=== PATIENT | female | born 1990 | race African-American/Black ===

== ENCOUNTER → 2017-04-04 | Outpatient (CLI) | payer OTHER ==
[2017-04-04 02:52] LABS: ADD MAN DIFF? NO
[2017-04-04 02:58] LABS: BASO % 1 % (0-3); EOS % 1 % (0-3); HEMOGLOBIN 11.1 g/dL (12.0-15.5); LYMPH # 2.1 x10^3/uL (1.0-4.8); LYMPH % 44 % (24-48); MEAN CORPUSCULAR HEMOGLOBIN 24 pg (25-35); MEAN CORPUSCULAR HGB CONC 32 g/dL (31-37); MEAN CORPUSCULAR VOLUME 76 fL (79-100); MONO # 0.4 x10^3/uL (0.0-1.1); MONO % 8 % (0-9); NEUT # 2.2 x10^3uL (1.8-7.7); NEUT % 46 % (31-73); PLATELET COUNT 281 x10^3/uL (140-400); RED CELL DISTRIBUTION WIDTH 12.9 % (11.5-14.5); WHITE BLOOD COUNT 4.8 x10^3/uL (4.0-11.0)
[2017-04-04 03:08] LABS: BILIRUBIN,URINE SMALL (NEG); CLARITY,URINE CLEAR; COLOR,URINE YELLOW; GLUCOSE,URINE NEGATIVE (NEG); NITRITE,URINE NEGATIVE (NEG); PROTEIN,URINE NEGATIVE (NEG-TRACE)
[2017-04-04 03:13] LABS: % SAT IRON 9 % (15-34); IRON,SERUM 31 ug/dL (50-170)
[2017-04-04 03:14] LABS: ALBUMIN 4.2 g/dL (3.4-5.0); ALBUMIN/GLOBULIN RATIO 1.1 (1.0-1.7); ALK PHOS 60 U/L (46-116); ALT (SGPT) 13 U/L (14-59); ANION GAP 9 (6-14); AST (SGOT) 12 U/L (15-37); BLOOD UREA NITROGEN 11 mg/dL (7-20); BUN/CREATININE RATIO 12 (6-20); C-REACTIVE PROTEIN 0.7 mg/L (0-3.3); CALCIUM 8.3 mg/dL (8.5-10.1); CARBON DIOXIDE 25 mmol/L (21-32); CHLORIDE 103 mmol/L (98-107); CREATININE 0.9 mg/dL (0.6-1.0); GFR 76.3; GLUCOSE 100 mg/dL (70-99); POTASSIUM 3.4 mmol/L (3.5-5.1); SODIUM 137 mmol/L (136-145); TOTAL BILIRUBIN 0.5 mg/dL (0.2-1.0)
[2017-04-04 03:24] LABS: FREE T4 1.12 ng/dL (0.76-1.46)
[2017-04-04 03:24] LABS: BACTERIA,URINE 0 /HPF (0-FEW); RBC,URINE 0 /HPF (0-2); SQUAMOUS EPITHELIAL CELL,UR FEW /LPF; THYROID STIM HORMONE (TSH) 2.985 uIU/mL (0.358-3.74); WBC,URINE 0 /HPF (0-4)
[2017-04-04 04:02] LABS: SEDIMENTATION RATE 5 (0-25)
[2017-04-04 04:04] LABS: FERRITIN 27 ng/mL (8-252)
[2017-04-04 08:46] LABS: FOLATE 8.89 ng/ml (3.2-20.0)
[2017-04-04 08:46] LABS: VITAMIN-B12 485 pg/mL (247-911)
[2017-04-04 12:24] LABS: HEMOGLOBIN A1C 4.5 % (4.8-5.6); T3 TOTAL 96 ng/dL (71-180); THYROPEROXIDASE ANTIBODY 89 IU/mL (0-34); THYROXINE 7.1 ug/dL (4.5-12.0)
[2017-04-08 10:16] LABS: THYROGLOBULIN ANTIBODY 1.6 IU/mL (0.0-0.9)
== END | disposition home or self-care (01) ==
LOC: LAB 02:38
DX: E04.9 Nontoxic goiter, unspecified (principal); E06.9 Thyroiditis, unspecified; I88.9 Nonspecific lymphadenitis, unspecified; D64.9 Anemia, unspecified; R61 Generalized hyperhidrosis
CPT/HCPCS: 36415; 80053; 81001; 82306; 82607; 82728; 82746; 83036; 83540; 83550; 84436; 84439; 84443; 84480; 84481; 85025; 85651; 86140; 86376; 86800

== ENCOUNTER → 2017-04-23 | Outpatient (CLI) | payer OTHER | END | disposition home or self-care (01) | LOC: KCIC US 10:57 | DX: E04.1 Nontoxic single thyroid nodule (principal); R59.0 Localized enlarged lymph nodes; R61 Generalized hyperhidrosis | CPT/HCPCS: 71046; 76536; 76882 ==

== ENCOUNTER 2017-05-04 19:13 | Emergency (ER) | payer OTHER | END 2017-05-04 19:33 | disposition home or self-care (01) | LOC: ER 19:13 | DX: H57.8 Other specified disorders of eye and adnexa (principal) | CPT/HCPCS: 99283 ==

== ENCOUNTER 2017-05-17 07:30 | Emergency (ER) | payer OTHER ==
[2017-05-17] MEDS ORDERED: 0.9 % SODIUM CHLORIDE 10 ML DISP.SYRIN. IV (07:45)
[2017-05-17 07:55] LABS: URINE HCG POC HCG NEGATIVE (Negative)
[2017-05-17 08:02] LABS: BILIRUBIN,URINE SMALL (NEG); CLARITY,URINE CLEAR; COLOR,URINE AMBER; GLUCOSE,URINE NEGATIVE (NEG); NITRITE,URINE NEGATIVE (NEG); PH,URINE 5.5; PROTEIN,URINE NEGATIVE (NEG-TRACE)
[2017-05-17 08:07] LABS: ADD MAN DIFF? NO
[2017-05-17 08:12] LABS: BASO # 0.1 x10^3/uL (0.0-0.2); BASO % 1 % (0-3); EOS # 0.1 x10^3/uL (0.0-0.7); EOS % 1 % (0-3); HEMATOCRIT 33.4 % (36.0-47.0); HEMOGLOBIN 10.5 g/dL (12.0-15.5); LYMPH % 33 % (24-48); MEAN CORPUSCULAR HEMOGLOBIN 24 pg (25-35); MEAN CORPUSCULAR HGB CONC 31 g/dL (31-37); MEAN CORPUSCULAR VOLUME 76 fL (79-100); MONO # 0.6 x10^3/uL (0.0-1.1); MONO % 10 % (0-9); NEUT # 3.4 x10^3uL (1.8-7.7); NEUT % 55 % (31-73); PLATELET COUNT 288 x10^3/uL (140-400); RED BLOOD COUNT 4.42 x10^6/uL (3.50-5.40); RED CELL DISTRIBUTION WIDTH 12.7 % (11.5-14.5); WHITE BLOOD COUNT 6.1 x10^3/uL (4.0-11.0)
[2017-05-17] MEDS: LIDO:MAALOX:DONNATAL 1:1:1 15 ML SINGLE DOSE SWSW (08:12)
[2017-05-17 08:13] LABS: BACTERIA,URINE 0 /HPF (0-FEW); WBC,URINE 0 /HPF (0-4)
[2017-05-17] MEDS: KETOROLAC 30 MG/ML INJ. IV (08:13)
[2017-05-17] MEDS: IV NORMAL SALINE 1000ML BAG 1,000 ML IV (08:13)
[2017-05-17] MEDS: ONDANSETRON PF 4 MG/2 ML VIAL. IV (08:13)
[2017-05-17 08:18] LABS: ANION GAP 6 (6-14); BLOOD UREA NITROGEN 7 mg/dL (7-20); CALCIUM 8.9 mg/dL (8.5-10.1); CARBON DIOXIDE 27 mmol/L (21-32); CHLORIDE 105 mmol/L (98-107); CREATININE 0.9 mg/dL (0.6-1.0); GFR 92.3; GLUCOSE 103 mg/dL (70-99); POTASSIUM 3.4 mmol/L (3.5-5.1); SODIUM 138 mmol/L (136-145)
[2017-05-17 08:24] LABS: ALBUMIN 3.7 g/dL (3.4-5.0); ALK PHOS 62 U/L (46-116); ALT (SGPT) 15 U/L (14-59); AST (SGOT) 15 U/L (15-37); DIRECT BILIRUBIN 0.1 mg/dL (0.0-0.2); LIPASE 117 U/L (73-393); TOTAL BILIRUBIN 0.4 mg/dL (0.2-1.0); TOTAL PROTEIN 7.2 g/dL (6.4-8.2)
[2017-05-17 08:29] LABS: TROPONINI < 0.017 ng/mL (0.000-0.055)
[2017-05-17 08:34] LABS: CKMB MASS < 0.5 ng/mL (0.0-3.6); CREATINE KINASE 138 U/L (26-192)
== END 2017-05-17 09:04 | disposition home or self-care (01) ==
LOC: ER 07:30
DX: R10.13 Epigastric pain (principal); R07.89 Other chest pain
CPT/HCPCS: 36415; 76705; 80048; 80076; 81001; 81025; 82553; 83690; 84484; 85025; 93005; 96361; 96374; 96375; 99285-25; J1885; J2405; J7030

== ENCOUNTER → 2017-10-31 | Outpatient (CLI) | payer OTHER ==
[2017-05-17 08:41] VITALS: BP 138/61
[~2017-10-31] MED LIST: ONDA4TAB10 PO; PANT20TA2 PO; PRED20TA PO
[2017-10-31 14:47] LABS: BASO % 1 % (0-3); EOS % 1 % (0-3); HEMATOCRIT 35.8 % (36.0-47.0); HEMOGLOBIN 11.4 g/dL (12.0-15.5); LYMPH # 1.6 x10^3/uL (1.0-4.8); LYMPH % 42 % (24-48); MEAN CORPUSCULAR HEMOGLOBIN 24 pg (25-35); MEAN CORPUSCULAR HGB CONC 32 g/dL (31-37); MEAN CORPUSCULAR VOLUME 76 fL (79-100); MONO # 0.4 x10^3/uL (0.0-1.1); MONO % 11 % (0-9); NEUT # 1.7 x10^3uL (1.8-7.7); NEUT % 45 % (31-73); PLATELET COUNT 296 x10^3/uL (140-400); RED BLOOD COUNT 4.69 x10^6/uL (3.50-5.40); RED CELL DISTRIBUTION WIDTH 13.1 % (11.5-14.5); WHITE BLOOD COUNT 3.8 x10^3/uL (4.0-11.0)
[2017-10-31 15:37] LABS: FREE T4 1.08 ng/dL (0.76-1.46)
[2017-10-31 15:40] LABS: ALBUMIN/GLOBULIN RATIO 1.1 (1.0-1.7); CALCIUM 8.4 mg/dL (8.5-10.1); CREATININE 0.9 mg/dL (0.6-1.0); GFR 92.3; POTASSIUM 3.7 mmol/L (3.5-5.1); TOTAL BILIRUBIN 0.5 mg/dL (0.2-1.0); TOTAL PROTEIN 7.7 g/dL (6.4-8.2)
[2017-10-31 22:15] LABS: FSH 3.5 mIU/mL (.); LUTEINIZING HORMONE 7.6 mIU/mL (.); PROGESTERONE 15.1 ng/mL (.); PROLACTIN 15.4 ng/mL (4.8-23.3); THYROXINE 7.5 ug/dL (4.5-12.0)
[2017-11-01 05:18] LABS: HEMOGLOBIN A1C 4.2 % (4.8-5.6)
== END | disposition home or self-care (01) ==
LOC: LAB 14:13
PROVIDERS: ATTEND Family Medicine
DX: D64.9 Anemia, unspecified (principal); E06.9 Thyroiditis, unspecified; N92.6 Irregular menstruation, unspecified
CPT/HCPCS: 36415; 80053; 82306; 82607; 82670; 82728; 82746; 83001; 83002; 83036; 83540; 84144; 84146; 84436; 84439; 84480; 84481; 85025; 86376

== ENCOUNTER 2018-07-28 12:12 | Emergency (ER) | payer OTHER ==
[~2018-07-28] VITALS: Ht 170.2 cm; Wt 68.0 kg
[2018-07-28 12:47] VITALS: BP 136/65
[2018-07-28 14:18] LABS: U PREG PATIENT NEGATIVE (NEG)
[2018-07-28] MEDS ORDERED: KETOROLAC 60 MG/2 ML VIAL. IM ONE (14:30)
[2018-07-28] MEDS ORDERED: CYCL5TAB PO (14:53)
--- NOTE | 2018-07-28 14:54 | PHYS DOC ---
Past Medical History Past Medical History: Anemia Additional Past Medical Histor: Lou's thyroiditis (ONESIMO WHITEHEADKEENAN [employer]) Past Surgical History: Other Additional Past Surgical Histo: UMBILICAL SX (JCARLOSPAWELBAKARICHARLEE Chow APRN) Alcohol Use: None Drug Use: None (COURT WHITEHEADCHARLEE Chow APRN) Adult General Chief Complaint Chief Complaint: BACK PAIN OR INJURY HPI HPI Patient is a 28 year old female who presents with pain in her lower back after she strained it lifting a patient at work. The patient states that she was working with a personal size and as they were rolling the patient to do wound care and cleaning the patient she wrenched her back. She states that she is having muscle spasms. She denies spontaneous loss of bowel or bladder, saddle numbness or foot drop. (BAKARI WHITEHEAD APRN) Review of Systems Review of Systems Constitutional: Denies fever or chills [] Eyes: Denies change in visual acuity, redness, or eye pain [] HENT: Denies nasal congestion or sore throat [] Respiratory: Denies cough or shortness of breath [] Cardiovascular: No additional information not addressed in HPI [] GI: Denies abdominal pain, nausea, vomiting, bloody stools or diarrhea [] : Denies dysuria or hematuria [] Musculoskeletal: See history of present illness Integument: Denies rash or skin lesions [] Neurologic: Denies headache, focal weakness or sensory changes [] Endocrine: Denies polyuria or polydipsia [] All other systems were reviewed and found to be within normal limits, except as documented in this note. (BAKARI WHITEHEAD APRN) Current Medications Current Medications Current Medications Medications (Trade) Dose Ordered Sig/[facility] Start Time Stop Time Status Last Admin Dose Admin Ketorolac Tromethamine (Toradol Im) 60 mg 1X ONCE 07/28/18 14:30 07/28/18 14:31 DC 07/28/18 14:55 60 MG (SANDEEP REYES MD) Allergies Allergies Allergies Coded Allergies Type Severity Reaction Last Updated Verified No Known Drug Allergies 05/04/17 No (SANDEEP REYES MD) Physical Exam Physical Exam Constitutional: Well developed, well nourished, no acute distress, non-toxic appearance. [] Cardiovascular:Heart rate regular rhythm, no murmur [] Lungs & Thorax: Bilateral breath sounds clear to auscultation [] Abdomen: Bowel sounds normal, soft, no tenderness, no masses, no pulsatile masses. [] Skin: Warm, dry, no erythema, no rash. [] Back: No point spinal tenderness, general lumbar tenderness, no CVA tenderness. [] Extremities: No tenderness, no cyanosis, no clubbing, ROM intact, no edema. [] Neurologic: Alert and oriented X 3, normal motor function, normal sensory function, no focal deficits noted. [] Psychologic: Affect normal, judgement normal, mood normal. [] (BAKARI WHITEHEAD APRN) Current Patient Data Vital Signs Vital Signs Date Time Temp Pulse Resp B/P (MAP) Pulse Ox O2 Delivery O2 Flow Rate FiO2 07/28/18 12:47 98.6 75 136/65 (88) 98 Room Air 98.6 (SANDEEP REYES MD) Lab Values Laboratory Tests Test 07/28/18 13:01 Urine Test Negative (NEG) (SANDEEP REYES MD) EKG EKG [] (BAKARI WHITEHEAD APRN) Radiology/Procedures Radiology/Procedures [] (BAKARI WHITEHEAD APRN) Course & Med Decision Making Course & Med Decision Making Pertinent Labs and Imaging studies reviewed. (See chart for details) []The patient received a shot of Toradol in the emergency department. (BAKARI WHITEHEAD APRN) Course & Med Decision Making Staff Physician Addendum: I was working in the ER during the course of this patient's visit. I was available for consultation as needed, but I was not directly involved in the care of this patient. (SANDEEP REYES MD) Dragon Disclaimer Dragon Disclaimer This electronic medical record was generated, in whole or in part, using a voice recognition dictation system. (BAKARI WHITEHEAD APRN) Departure Departure Impression: Primary Impression: Back pain Additional Impression: Muscle spasm Disposition: HOME, SELF-CARE Condition: STABLE Referrals: KENNY MASSEY (PCP) Patient Instructions: Back Pain, Adult, Muscle Cramps, [id number] Additional Instructions: Take the medication as directed. This medication might cause extreme drowsiness. You might only revealed take this medication at night. Do not drive or operate heavy machinery until he no high you react. Follow-up with your workman's compensation provider if your back pain does not resolve in 2-3 days. Scripts Cyclobenzaprine Hcl (CYCLOBENZAPRINE HCL) 5 Mg Tablet 5 MG PO TID for back spasm, #20 TAB Prov: BAKARI WHITEHEAD APRN 07/28/18 Problem Qualifiers BAKARI WHITEHEAD APRN July 28, 2018 14:54 SANDEEP REYES MD July 29, 2018 18:42
== END 2018-07-28 15:41 | disposition home or self-care (01) ==
LOC: ER 12:12
DX: M62.830 Muscle spasm of back (principal); M54.5 Low back pain; Z98.890 Other specified postprocedural states
CPT/HCPCS: 81025; 96372; 99283; J1885